=== PATIENT | female | born 1935 | race Caucasian/White ===

== ENCOUNTER 2016-12-22 18:14 | Inpatient (IN) | payer OTHER ==
[~2016-12-22] VITALS: Ht 147.3 cm; Wt 87.1 kg
--- NOTE | 2016-12-22 21:19 | DIAGNOSTIC IMAGING REPORT ---
PROCEDURE: ABDOMEN/PELVIS WITH CONTRAST CLINICAL INDICATION: ABDOMINAL PAIN TECHNIQUE: 125 ml of Isovue 300 were injected intravenously and axial images were obtained of the abdomen and pelvis with sagittal and coronal reformations. COMPARISON: 03/10/2014 FINDINGS: ABDOMEN: Bibasilar atelectasis. Diffuse circumferential wall thickening of the distal esophagus and mild mucosal hyperemia. Moderate cardiomegaly. There is a fairly long segment, at least 15 cm, of a small bowel loop which demonstrates moderate stricturing and diffuse circumferential wall thickening, moderate wall hyperemia, and surrounding inflammatory changes including adjacent free fluid. Proximal to this, multiple loops of small bowel are distended and fluid-filled. The stomach is moderately distended and fluid-filled. Surgically absent gallbladder with moderate intra and extrahepatic biliary dilatation. The adrenal glands, kidneys, pancreas and spleen are normal. The abdominal aorta is normal in its course and caliber. Mild atherosclerosis. There are no suspicious calcifications, retroperitoneal adenopathy or masses. PELVIS: Surgically absent appendix. Normal amount of stool in the colon and rectum. The uterus, urinary bladder, and pelvic vessels are normal. No adenopathy, free fluid, or pelvic mass. Diffuse degenerative disc changes. IMPRESSION: 1. Findings of high-grade partial or near complete bowel obstruction with a fairly long segment of transition zone in the left lower quadrant of moderately strictured, inflamed small bowel. Adjacent fluid but no free air. 2. Post cholecystectomy with biliary dilatation and appendectomy. 3. Distal esophagitis, acute versus chronic. 4. Moderate cardiomegaly. 5. Discussed with Dr. Hennessy in the emergency room. All CT scans at this facility use dose modulation, iterative reconstruction, and/or weight-based dosing when appropriate to reduce radiation dose to as low as reasonably achievable.
--- NOTE | 2016-12-22 21:34 | ED NURSING NOTES ---
Clinical Report - Nurses [facility] [address] [place] [address] 12/22/2016 18:15 Patient: CHRISTIE BAILEY TRIAGE Triage time 18:34 Dec 22 2016. Acuity: LEVEL 3. Chief Complaint: ABDOMINAL PAIN, NAUSEA and VOMITING. ARIANNA COMA SCORE: Arianna Coma Scale: 15- eyes open spontaneously (4); best verbal response- oriented x 4 (5); best motor response- obeys commands (6). --18:41 Jamarcus Vance R.N. 18:34 12/22/16. BP: 166/79. HR: 77. RR: 18. O2 saturation: 93%. Temp: 98.4 F. Pain level now 8/10. --18:41 Jamarcus Vance R.N. Weight: 73.9 kg stated. Height/Length: 59 inches Per Patient. BMI: 32.9. --18:38 Jamarcus Vance R.N. Medications Olopatadine HCl Ophthalmic. --18:46 Jamarcus Vance R.N. Losartan Potassium Oral (Tablet 100 mg) 1 tablet, daily. --18:46 Jamarcus Vance R.N. Hydrochlorothiazide Oral (Tablet 50 mg) 1 tablet, daily. --18:46 Jamarcus Vance R.N. Multi Vitamin Daily Oral. --18:46 Jamarcus Vance R.N. Ondansetron Oral (Film 4 mg), 3x a day as needed. --18:48 Jamarcus Vance R.N. Polyethylene Glycol 3350 Oral. --18:49 Jamarcus Vance R.N. Aspir-81 Oral. --18:49 Jamarcus Vance R.N. Probiotic Daily Oral. --18:49 Jamarcus Vance R.N. Metoprolol Tartrate Oral. --18:50 Jamarcus Vance R.N. Allergies Benecore. Definite Moderate(nausea) Codeine. Definite Moderate(hives) --18:36 Jamarcus Vance R.N. Oxycodone. --18:36 Jamarcus Vance R.N. Atenolol. --18:37 Jamarcus Vance R.N. History Arrived by private vehicle. Historian: patient. Accompanied by family. This started last night. She has had nausea, vomiting and abdominal pain. No diarrhea, constipation or fever. Last oral intake by patient was yesterday (1500). PAST MEDICAL HX: Gallstones. No history of diabetes mellitus. No history of gastroesophageal reflux disease or peptic ulcer disease. Immunizations: up-to-date. SOCIAL HX: Never smoker. No alcohol use or drug use. No recent travel. No known contact with a sick individual. SELF HARM ASSESSMENT: A self harm assessment was performed. The patient answered "no" to the question "Have you recently felt down, depressed, or hopeless?" and "Do you have thoughts of harming or killing yourself?". FALL RISK ASSESSMENT: Fall risk assessment completed. No fall risk identified. NUTRITIONAL RISK ASSESSMENT: The nutritional risk assessment revealed no deficiencies. FUNCTIONAL ASSESSMENT: Functional assessment: no impairments noted. LEARNING NEEDS ASSESSMENT: The learning needs assessment revealed no barriers. ABUSE ASSESSMENT: Abuse assessment: (yes) The patient was asked "Do you feel safe in your home?". SKIN INTEGRITY ASSESSMENT: Skin integrity risk assessment completed. No skin integrity risk identified. --18:41 Jamarcus Vance R.N. PROBLEMS: Tinnitus . Serrated adenoma of colon . Bowel Obstruction. Hernia. LNMP - Last Normal Menstrual Period. Ovarian Cyst. Hypertension. Diverticulosis. --18:54 Jamarcus Vance R.N. ADDITIONAL SURGERIES: Adenoidectomy. Appendectomy. Bunionectomy . Cholecystectomy. Colostomy. Csection . Hammer toe repair . Hand finger surgery . Inguinal Hernia Repair. Laparoscopy. Shoulder Surgery. Tonsillectomy. --18:54 Jamarcus Vance R.N. Interventions ID and allergy band on patient. --18:41 Jamarcus Vance R.N. PHYSICAL ASSESSMENT To room via wheelchair. GENERAL / NEURO / PSYCH: Alert. Oriented X 4. Appears in pain. HEENT: Mucous membranes are pink. RESPIRATORY: Respirations not labored. Breath sounds within normal limits. CVS: Normal sinus rhythm noted. Capillary refill less than 2 seconds. GI / : The patient has had nausea. Abdominal distention. Abdominal tenderness. ( small little stools past few days.). SKIN: Skin is warm and dry. --18:43 Jamarcus Vance R.N. NURSING PROGRESS NOTES The initial plan of care for this patient includes an assessment with efforts to address patient positioning and appropriate ambient lighting; impairment of the gastrointestinal system. Pulse oximeter and NIBP monitor placed on patient. Patient gowned. Head of bed elevated. Reassurance given. Call light placed in reach. Side rails up x 1. Bed placed in lowest position. Brakes of bed on. --18:44 Jamarcus Vance R.N. 19:03. Care transferred and report received. --19:06 Kody Lanier R.N. 19:18. Patient ID band checked for patient name and birthdate: patient confirmed. Blood samples drawn from the right antecubital space peripheral IV site with syringe by nurse ; labeled in presence of the patient and sent to lab: rainbow set and cabrera top. Initial blood discarded and additional blood sent to lab. Line flushed with 10 mL normal saline post blood draw. --19:22 Kody Lanier R.N. 19:21 Patient assisted to restroom, pt obtaining urine sample. --19:23 Kody Lanier R.N. 19:23. Patient ID band checked for patient name and birthdate: patient confirmed. Clean catch urine collected with return of yellow-colored clear urine; sample sent to lab for urinalysis. Specimen labeled in the presence of the patient. --19:28 Kody Lanier R.N. 18:32 12/22/2016 Site #1 started via IV in the right antecubital space with an 20g angiocath (Started at [facility] here in the ED). --19:32 Kody Lanier R.N. 19:28 12/22/2016 Started bag #1 1000 mL IV Fluids IV NS (Saline); at 1000 mL/hr over 1 hour(s) via site #1 via IV pump. Allergies verified and confirmed 5 rights. IV patency established. IV site checked: no pain, redness, or swelling. IV flushed thoroughly pre- and post-medication administration. --19:33 Kody Lanier R.N. 19:28 12/22/2016 Reglan (Metoclopramide HCl) IVP 10 mg given over 2 minute(s) via site #1. Allergies verified and confirmed 5 rights. IV patency established. IV site checked: no pain, redness, or swelling. IV flushed thoroughly pre- and post-medication administration. --19:33 Kody Lanier R.N. 19:30 12/22/2016 Dilaudid (HYDROmorphone HCl PF) IVP 0.5 mg given over 2 minute(s) via site #1. Allergies verified, confirmed 5 rights and sedative warning given to the patient and patient's family. IV patency established. IV site checked: no pain, redness, or swelling. IV flushed thoroughly pre- and post-medication administration. --19:33 Kody Lanier R.N. 20:22. Patient transported to CT by stretcher with tech. --20:22 Kody Lanier R.N. 20:36. Patient returned from CT by stretcher with tech. --20:42 Kody Lanier R.N. The patient is calm and resting quietly. SKIN: Skin is warm and dry. Skin color within normal limits. --20:46 Kody Lanier R.N. 20:45 12/22/16. BP: 133/98. HR: 66. RR: 16. O2 saturation: 96% on nasal cannula at 2 liters/minute. Pain level now: 12/27. --20:46 Kody Lanier R.N. 20:47 additional blanket provided to pt. --21:44 Kody Lanier R.N. 21:44 Dr. Lopes with pt for exam. --21:44 Kody Lanier R.N. 21:52 12/22/2016 IV Fluids IV NS Discontinued: bag #1 infused. Total amount infused: 1000 mL. IV patency established. IV site checked: no pain, redness, or swelling. IV flushed thoroughly. --21:53 Kody Lanier R.N. 22:18. Oxygen discontinued (by Dr. Lopes). --22:34 Kody Lanier R.N. 22:43. The patient is calm and resting quietly. Overall patient status- she states feels better. SKIN: Skin is warm and dry. Skin color within normal limits. --22:45 Kody Lanier R.N. Intake & Output 22:33. IV fluids: 1000 mL. Urine: 1 trip to restroom. --22:36 Kody Lanier R.N. DISPOSITION / DISCHARGE Condition at departure: stable. No learning barriers present. Admitted to Acute Care. Transported via stretcher by [employer] with O2. Patient's personal items include: upper denture and lower denture, Other belongings; items were placed in belongings bag and transported with the patient. She did not have glasses, contacts or a hearing aid. FALL RISK ASSESSMENT: Fall risk assessment completed. No fall risk identified. --22:32 Kody Lanier R.N. 21:48 12/22/16. BP: 119/87. HR: 72. RR: 17. O2 saturation: 97% on nasal cannula at 2 liters/minute. Pain level now: 12/27. --22:32 Kody Lanier R.N. Report was given via a phone call. Report included patient's care, treatment, medications, reviewed medication reconcilliation, and condition (including any recent changes or anticipated changes). All questions were answered. Report was acknowledged. (Camila JASMINEcna caregiver). --22:33 Kody Lanier R.N. Departure time: 22:45. --22:45 Kody Lanier R.N. Locked/Released at 12/22/2016 22:50 by Kody Lanier R.N.
--- NOTE | 2016-12-22 21:34 | ED ORDER SUMMARY ---
..... Patient: CHRISTIE BAILEY OrderSheet [facility] VisitID: [id number] [address] [place] [place] [address] 81y, F Registration Date/Time: 12/22/2016 ORDER SHEET Weight: 73.9 kg (stated) Allergies: Benecore, Codeine, Oxycodone, Atenolol GENERAL ORDERS: CT Abd/Pel w Cont (No) (N/A) Urgent (18:59 12/22/2016 Robinson Worley) (Ack 19:01 Rodolfo) (20:37 RFay) CBC w Diff Urgent (19:00 12/22/2016 Robinson Worley) (Ack 19:01 Rodolfo) (19:28 JQuivey R.N.) CMP Urgent (19:00 12/22/2016 Robinson Worley) (Ack 19:01 Rodolfo) (19:28 JQuivey R.N.) UA-Culture if indicated Urgent (19:00 12/22/2016 Robinson Worley) (Ack 19:01 Rodolfo) (19:28 JQuivey R.N.) PT with INR Urgent (19:00 12/22/2016 Robinson Worley) (Ack 19:01 Rodolfo) (19:28 JQuivey R.N.) Lipase Urgent (19:00 12/22/2016 Robinson Worley) (Ack 19:01 Rodolfo) (19:28 JQuivey R.N.) Lactate, Serum Urgent (19:00 12/22/2016 Robinson Worley) (Ack 19:01 Rodolfo) (19:28 JQuivey R.N.) Pulse oximeter (19:00 12/22/2016 Robinson Worley) (Ack 19:07 JQuivey R.N.) (19:28 JQuivey R.N.) MEDICATION ORDERS: IV FLUIDS: IV NS : initial bolus 1000 mL (1000 mL/hr), then none - for X1 (NOW) (18:59 12/22/2016 Robinson Worley) (Ack 19:08 JQuivey R.N.) (19:33 Yiiveliza R.N.) Dilaudid IV 0.5 mg (HIGH ALERT MEDICATION, NOW) (19:00 12/22/2016 Robinson Worley) (Ack 19:07 Yiiveliza R.N.) (19:33 Yiivey R.N.) Reglan IV 10 mg (NOW) (19:12/22/2016 Robinson Worley) (Ack 19:07 Yiiveliza R.N.) (19:33 Yiivey R.N.) ORDER SHEET NOTES: [Electronically signed by Kody Lanier R.N. (22:50 12/22/2016)] [Electronically signed by Severiano Hennessy Dr. (05:33 12/24/2016)] [Electronically locked/signed by Kody Lanier R.N. (22:50 12/22/2016)]
--- NOTE | 2016-12-22 21:34 | ED ORDER SUMMARY ---
..... Patient: CHRISTIE BAILEY OrderSheet [facility] VisitID: [id number] [address] [place] [place] [address] 81y, F Registration Date/Time: 12/22/2016 ORDER SHEET Weight: 73.9 kg (stated) Allergies: Benecore, Codeine, Oxycodone, Atenolol GENERAL ORDERS: CT Abd/Pel w Cont (No) (N/A) Urgent (18:59 12/22/2016 Robinson Worley) (Ack 19:01 Rodolfo) (20:37 RFay) CBC w Diff Urgent (19:00 12/22/2016 Robinson Worley) (Ack 19:01 Rodolfo) (19:28 JQuivey R.N.) CMP Urgent (19:00 12/22/2016 Robinson Worley) (Ack 19:01 Rodolfo) (19:28 JQuivey R.N.) UA-Culture if indicated Urgent (19:00 12/22/2016 Robinson Worley) (Ack 19:01 Rodolfo) (19:28 JQuivey R.N.) PT with INR Urgent (19:00 12/22/2016 Robinson Worley) (Ack 19:01 Rodolfo) (19:28 JQuivey R.N.) Lipase Urgent (19:00 12/22/2016 Robinson Worley) (Ack 19:01 Rodolfo) (19:28 JQuivey R.N.) Lactate, Serum Urgent (19:00 12/22/2016 Robinson Worley) (Ack 19:01 Rodolfo) (19:28 JQuivey R.N.) Pulse oximeter (19:00 12/22/2016 Robinson Worley) (Ack 19:07 JQuivey R.N.) (19:28 JQuivey R.N.) MEDICATION ORDERS: IV FLUIDS: IV NS : initial bolus 1000 mL (1000 mL/hr), then none - for X1 (NOW) (18:59 12/22/2016 Robinson Worley) (Ack 19:08 JQuivey R.N.) (19:33 Yiiveliza R.N.) Dilaudid IV 0.5 mg (HIGH ALERT MEDICATION, NOW) (19:00 12/22/2016 Robinson Worley) (Ack 19:07 Yiiveliza R.N.) (19:33 Yiivey R.N.) Reglan IV 10 mg (NOW) (19:12/22/2016 Robinson Worley) (Ack 19:07 Yiiveliza R.N.) (19:33 Yiivey R.N.) ORDER SHEET NOTES: [Electronically signed by Kody Lanier R.N. (22:50 12/22/2016)] [Electronically signed by Severiano Hennessy Dr. (05:33 12/24/2016)] [Electronically locked/signed by Kody Lanier R.N. (22:50 12/22/2016)]
--- NOTE | 2016-12-22 21:34 | ED CLINICAL REPORT ---
Clinical Report - Physicians/Mid Levels [facility] [address] [place] [address] 12/22/2016 18:15 Patient: CHRISTIE BAILEY Arrived- By ambulance. Historian- patient. HISTORY OF PRESENT ILLNESS Chief Complaint: ABDOMINAL PAIN. At its maximum, severity described as severe. When seen in the E.D., severity described as severe. Modifying factors- worsened by movement. Relieved by rest. It is described as sharp. No radiation. This started yesterday and is still present and worsening. It was abrupt in onset and has been constant and waxing/waning but is not gone now. The patient has had nausea and vomiting. No loss of appetite or diarrhea. No additional abdominal pain. (reports no flatus since abdominal pain began.). No recent travel. Similar symptoms previously: (a few times. reports hx of "bowel obstruction"). Recent medical care: Not recently seen/assessed. REVIEW OF SYSTEMS No chest pain, difficulty breathing or skin rash. All systems otherwise negative, except as recorded above. PAST HISTORY See nurses notes. Medications: Metoprolol Tartrate Oral. Probiotic Daily Oral. Aspir-81 Oral. Polyethylene Glycol 3350 Oral. Ondansetron Oral (Film 4 mg), 3x a day as needed. Multi Vitamin Daily Oral. Hydrochlorothiazide Oral (Tablet 50 mg) 1 tablet, daily. Losartan Potassium Oral (Tablet 100 mg) 1 tablet, daily. Olopatadine HCl Ophthalmic. Allergies: Atenolol. Benecore. Definite Moderate(nausea) Codeine. Definite Moderate(hives) Oxycodone. SOCIAL HISTORY Never smoker. No alcohol use or drug use. No recent travel. Is a local resident. ADDITIONAL NOTES The nursing notes have been reviewed. PHYSICAL EXAM Vital Signs: 12/22/2016 18:34 BP: 166/79. HR: 77. RR: 18. O2 saturation: 93%. Temp: 98.4 F. Hypertensive. Oxygen saturation normal. Appearance: Alert. Oriented X3. Patient in mild distress. (non-toxic, pleasant, cooperative). ENT: Ears normal. Nose normal. Pharynx normal. Neck: Normal inspection. Neck supple. CVS: Normal heart rate and rhythm. Heart sounds normal. Pulses normal. Respiratory: No respiratory distress. Breath sounds normal. Chest nontender. Abdomen: Soft. Mild tenderness in the epigastric area. Abnormal bowel sounds: absent. No organomegaly. No mass. Skin: Skin warm and dry. Normal skin color. No rash. Normal skin turgor. Extremities: Extremities exhibit normal ROM. No lower extremity edema. Neuro: No motor deficit. No sensory deficit. LABS, X-RAYS, AND EKG Abdominal CT: PROCEDURE: ABDOMEN/PELVIS WITH CONTRAST CLINICAL INDICATION: ABDOMINAL PAIN TECHNIQUE: 125 ml of Isovue 300 were injected intravenously and axial images were obtained of the abdomen and pelvis with sagittal and coronal reformations. COMPARISON: 03/10/2014 FINDINGS: ABDOMEN: Bibasilar atelectasis. Diffuse circumferential wall thickening of the distal esophagus and mild mucosal hyperemia. Moderate cardiomegaly. There is a fairly long segment, at least 15 cm, of a small bowel loop which demonstrates moderate stricturing and diffuse circumferential wall thickening, moderate wall hyperemia, and surrounding inflammatory changes including adjacent free fluid. Proximal to this, multiple loops of small bowel are distended and fluid-filled. The stomach is moderately distended and fluid-filled. Surgically absent gallbladder with moderate intra and extrahepatic biliary dilatation. The adrenal glands, kidneys, pancreas and spleen are normal. The abdominal aorta is normal in its course and caliber. Mild atherosclerosis. There are no suspicious calcifications, retroperitoneal adenopathy or masses. PELVIS: Surgically absent appendix. Normal amount of stool in the colon and rectum. The uterus, urinary bladder, and pelvic vessels are normal. No adenopathy, free fluid, or pelvic mass. Diffuse degenerative disc changes. IMPRESSION: 1. Findings of high-grade partial or near complete bowel obstruction with a fairly long segment of transition zone in the left lower quadrant of moderately strictured, inflamed small bowel. Adjacent fluid but no free air. 2. Post cholecystectomy with biliary dilatation and appendectomy. 3. Distal esophagitis, acute versus chronic. 4. Moderate cardiomegaly. Laboratory Tests: UA-Culture if indicated: (TIMMY: 12/22/2016 19:18) ( MsgRcvd 12/22/2016 20:19) Final results Test Result Flag Units (Reference) URINE COLOR YELLOW URINE APPEARANCE CLEAR URINE GLUCOSE NEGATIVE (NEGATIVE) URINE BILIRUBIN NEGATIVE (NEGATIVE) URINE KETONE 1+ (NEGATIVE) URINE SPECIFIC GRAVITY 1.025 (1.010-1.030) URINE PH 6.0 (5.0-8.0) URINE PROTEIN NEGATIVE (NEGATIVE) URINE UROBILINOGEN 1.0 EU/dL (0.2-1.0) URINE NITRITE NEGATIVE (NEGATIVE) URINE BLOOD NEGATIVE (NEGATIVE) URINE LEUK ESTERASE NEGATIVE (NEGATIVE) URINE RBC 0-1 rbc/hpf (0-1) URINE WBC 5-10 wbc/hpf (0-1) URINE EPITHELIAL CELLS 1-3 EPI/hpf (0-5) URINE BACTERIA NONE SEEN (NONE SEEN) URINE COMMENT CULT NOT INDICATED 1+ MUCUSURINE CULTURES ARE SET-UP BASED ON THE FOLLOWING CRITERIA:POSITIVE NITRITEPOSITIVE LEUKOCYTE ESTERASEGREATER THAN 10 WHITE BLOOD CELLSMODERATE (2+) OR GREATER BACTERIA CBC w Diff: (TIMMY: 12/22/2016 19:18) ( [facility] 12/22/2016 19:54) Final results Test Result Flag Units (Reference) WHITE BLOOD COUNT 15.1 H K/uL (4.5-11.5) RED BLOOD COUNT 4.72 M/uL (4.00-5.20) HEMOGLOBIN 14.0 gm/dL (12.0-16.0) HEMATOCRIT 42.4 % (36.0-46.0) MEAN CELL VOLUME 90 fL (80-100) MEAN CORPUSCULAR HGB 30 pg (26-34) MEAN CORPUSCULAR HGB CONC 33 g/dL (31-37) RED CELL DISTRIBUTION WIDTH 14.6 % (11.6-14.8) PLATELET COUNT 297 K/uL (150-400) NEUTROPHIL % 89.0 H % (50-75) LYMPH % 7.8 L % (25-40) MONO % 2.5 L % (3-14) EOSINOPHIL % 0.3 % (0-4) BASOPHIL % 0.4 % (0-2) PT with INR: (TIMMY: 12/22/2016 19:18) ( [facility] 12/22/2016 19:55) Final results Test Result Flag Units (Reference) INR 1.0 (0.8-1.2) Low Intensity Therapy: INR 1.5-2.0 PT range 18.5-23.1Mod.Intensity Therapy: INR 2.0-3.0 PT range 23.1-31.5High Intensity Therapy: INR 2.5-3.5 PT range 27.4-35.5High Intensity Therapy 2: INR 3.0-4.0 PT range 31.5-39.3 Lactate, Serum: (TIMMY: 12/22/2016 19:18) ( [facility] Final results Test Result Flag Units (Reference) LACTIC ACID 1.4 mmol/L (0.4-2.0) CMP: (TIMMY: 12/22/2016 19:18) ( [facility] 12/22/2016 20:07) Final results Test Result Flag Units (Reference) GLUCOSE 125 H mg/dL (70-110) BUN 14 mg/dL (7-18) CREATININE 0.8 mg/dL (0.6-1.3) Estimated GFR >60 mL/min Estimated GFR- >60 mL/min Note: Persistent reduction over 3 months in eGFR<60 mL/min/1.73 m2 defines CKD. Patients with eGFR values>=60 mL/min/1.73 m2 may also have CKD if evidence ofpersistent proteinuria. Additional information may be foundat www.kidney.org. SODIUM 139 mmol/L (136-145) POTASSIUM 3.5 mmol/L (3.5-5.1) CHLORIDE 101 mmol/L (98-107) CARBON DIOXIDE 29 mmol/L (21-32) CALCIUM 8.9 mg/dL (8.5-10.1) TOTAL PROTEIN 7.2 g/dL (6.4-8.2) ALBUMIN 3.5 g/dL (3.3-5.0) BILIRUBIN, TOTAL 0.6 mg/dL (0.0-1.0) ALKALINE PHOSPHATASE 106 U/L (46-116) AST (SGOT) 18 U/L (15-37) ALT (SGPT) 17 U/L (12-78) LIPASE 97 U/L (73-393) . PROGRESS AND PROCEDURES Course of Care: the patient is a pleasant 81-year-old female with past medical history significant for small bowel obstruction presenting for evaluation of abdominal pain and nausea with vomiting. At this time differential diagnosis includes urinary tract infection, small bowel obstruction, or surgical abdomen. Patient will be evaluated with CT scan and laboratory studies. Patient is agreeable to the treatment and plan. Pain medication has been provided. Patient is in place as nothing by mouth. Workup shows patient to have a small bowel obstruction. Discussed case with radiology. Patient will likely need to be admitted to the hospital for bowel rest and IV hydration. Discussed cased with hospitalist. No further recommendations. Also had discussed case with general surgery. No further recommendations made by general surgery. Patient will be monitored in the emergency department untilpatient is been placed on the floor. Do not feel patient has surgical abdomen at this time. Patient continues to be nontoxic and in no acute distress. Repeat examination of the abdomen is improved. Patient also reports that her pain has significantly improved since being here in the emergency department. Do not feel patient is a good outpatient candidate as she is 81 years old and has radiographic evidence of bowel obstruction. Patient is at high risk for complications if discharged home. Patient is agreeable to the admission to the hospital. Discussed with patient workup here in the emergency department as well as plan of care and diagnosis. All questions have been answered. Consult obtained. general surgery. Disposition: Observation in Acute Care. CLINICAL IMPRESSION acute small bowel obstruction acute leukocytosis nausea and vomiting, acute. (Electronically signed by Severiano Hennessy Dr. 12/24/2016 5:33)
[2016-12-22 22:55] VITALS: BP 136/61
[2016-12-23 03:06] VITALS: BP 134/67
[2016-12-23] MEDS ORDERED: ASPIRIN ADULT L81 MG PO (06:22)
[2016-12-23] MEDS ORDERED: HYDROCHLOROTHIA25 MG PO (06:24)
[2016-12-23] MEDS ORDERED: MULTIVITAMIN1 TAB PO (06:25)
[2016-12-23] MEDS ORDERED: COZAAR100 MG PO (06:25)
[2016-12-23] MEDS ORDERED: ZOFRAN ODT4 MG PO (06:28)
[2016-12-23] MEDS ORDERED: MIRALAX EQUIVAL17 GM PO (06:29)
[2016-12-23 06:41] VITALS: BP 132/75
--- NOTE | 2016-12-23 08:03 | History & Physical Report ---
Information Source Information Source: Self Reliability: Good History Chief Complaint abdominal pain with nausea and vomiting History of Present Illness Patient is an Patient History 1. Small bowel obstruction 2. Leukocytosis 3. Nausea and vomiting 4. Hypertension Social History Pt lives at home with her daughter. She is a retired housewife. She does not drink, smoke or use illicit substances. Medications and Allergies Medications Home Medications hctz 50 mg dialy aspirin 81 mg daily losartan 100 mg daily metoprolol tartrate 25 mg daily Current Medications Sig/Roshni Start time Last Medication Dose Route Stop Time Status Admin Aspirin 81 MG DAILY 12/23 899 AC 12/23 PO 1010 Candesartan Cilexetil 16 MG DAILY 12/23 899 AC 12/23 PO 1010 Hydrochlorothiazide 50 MG DAILY 12/23 899 AC 12/23 PO 1010 Pantoprazole Sodium 40 MG DAILY@0600 12/23 0600 AC 12/23 IV 0608 Morphine Sulfate 1 MG Q4H PRN 12/22 2245 AC IV Acetaminophen 650 MG Q6H PRN 12/22 2230 AC PO Sodium Chloride 1,000 ML ASDIRECTED 12/22 2230 AC 12/23 IV 0637 Morphine Sulfate 2 MG Q4H PRN / 2145 AC 12/23 IV 0801 Morphine Sulfate 4 MG Q4H PRN / 2145 AC IV Ondansetron HCl 4 MG Q8H PRN / 2130 AC 12/23 IV 0319 Allergies Coded Allergies: Codeine (Severe, RED HIVES 12/23/16) Atenolol (Intermediate, Nausea, Vomiting 12/23/16) Olmesartan (Intermediate, BLOATING 12/23/16) Oxycodone (Avoids because of codeine allergy 12/23/16) Review of Systems Constitutional Denies: Fever, Chills, Sweats, Weakness, Malaise, Other. Eyes Denies: Pain, Vision Change, Conjunctival Inflammation, Eyelid Inflammation, Redness, Other. ENT Denies: Ear Pain, Ear Discharge, Nose Pain, Nasal Discharge, Nasal Congestion, Mouth Pain, Mouth Swelling, Throat Pain, Throat Swelling, Other. Respiratory Denies: Cough, Dry, SOB w/exertion, Wheezing, Hemoptysis, Pleuritic Pain, Sputum , Other. Cardiovascular Denies: Chest Pain, Palpitations, Orthopnea, PND, Edema, Light-headedness, Other. Gastrointestinal Denies: Nausea, Vomiting, Abdominal Pain, Diarrhea, Constipation, Melena, Hematochezia, Other. Genitourinary Denies: Dysuria, Frequency, Incontinence, Hematuria, Retention, Other. Musculoskeletal Denies: Neck Pain, Shoulder Pain, Arm Pain, Back Pain, Hand Pain, Leg Pain, Foot Pain, Other. Skin Denies: Rash, Lesions, Jaundice, Bruising, Other. Neurological Denies: Weakness, Numbness, Incoordination, Change in speech, Confusion, Seizures, Other. Physical Exam Vital Signs / I&Os Vital Signs Date Time Temp Pulse Resp B/P Pulse O2 O2 Flow FiO2 Ox Delivery Rate 12/23 1131 98.4 63 20 126/56 95 Room Air 0.0 12/23 0641 98.2 51 20 132/75 92 Room Air 0.0 12/23 0306 99.1 72 16 134/67 93 Room Air 12/22 2330 Room Air 12/22 2255 98.4 68 16 136/61 93 I&O 12/22 0800 12/22 1600 12/23 0000 Intake Total Output Total Balance General Appearance Alert, Oriented X3, No acute distress Lungs Clear to auscultation, Normal air movement Cardiovascular Regular rate and rhythm, Normal S1 and S2, No murmurs, gallops, rubs Abdomen Normal bowel sounds, Soft, No tenderness, No guarding, No rebound Extremities No clubbing, No edema, Normal pulses, No tenderness, Strength = upper ext's, Strength = lower ext's, Grace's sign negative Skin No Rashes Neurological Normal speech, Normal tone, Sensation intact, Reflexes 2+ and equal , Cranial nerves intact, Strength 5/5 x4 ext's, No lateralizing signs Psych/Mental Status Mental status normal, Mood normal, Confused LAB Results Laboratory Tests 12/22 12/22 12/23 1918 1918 0510 Chemistry Plasma Sodium (136 - 145 mmol/L) 139 143 Plasma Potassium (3.5 - 5.1 mmol/L) 3.5 3.6 Plasma Chloride (98 - 107 mmol/L) 101 107 CO2 (Enzymatic) (21 - 32 mmol/L) 29 28 BUN (7 - 18 mg/dL) 14 12 Creatinine (0.6 - 1.3 mg/dL) 0.8 0.7 Est GFR ( Amer) (mL/min) >60 >60 Est GFR (Non-Af Amer) (mL/min) >60 >60 Glucose (70 - 110 mg/dL) 125 106 Lactic Acid (0.4 - 2.0 mmol/L) 1.4 Plasma Calcium (8.5 - 10.1 mg/dL) 8.9 8.0 Total Bilirubin (0.0 - 1.0 mg/dL) 0.6 0.5 AST (15 - 37 U/L) 18 13 ALT (12 - 78 U/L) 17 15 Alkaline Phosphatase (46 - 116 U/L) 106 84 Total Protein (6.4 - 8.2 g/dL) 7.2 5.5 Albumin (3.3 - 5.0 g/dL) 3.5 2.9 Lipase (73 - 393 U/L) 97 Coagulation INR (0.8 - 1.2) 1.0 Hematology WBC (4.5 - 11.5 K/uL) 15.1 12.5 RBC (4.00 - 5.20 M/uL) 4.72 3.96 Hgb (12.0 - 16.0 gm/dL) 14.0 11.7 Hct (36.0 - 46.0 %) 42.4 35.4 MCV (80 - 100 fL) 90 90 MCH (26 - 34 pg) 30 30 RDW (11.6 - 14.8 %) 14.6 14.6 Neut % (Auto) (50 - 75 %) 89.0 81.1 Lymph % (Auto) (25 - 40 %) 7.8 11.9 [place] % (Auto) (3 - 14 %) 2.5 6.1 Eos % (Auto) (0 - 4 %) 0.3 0.6 Baso % (Auto) (0 - 2 %) 0.4 0.3 Plt Count, EDTA (150 - 400 K/uL) 297 271 PUBS MCHC (31 - 37 g/dL) 33 33 Urines Urine Color YELLOW Urine Appearance CLEAR Urine pH (5.0 - 8.0) 6.0 Ur Specific [place] (1.010 - 1.030) 1.025 Urine Protein (NEGATIVE) NEGATIVE Urine Ketones (NEGATIVE) 1+ Urine Blood (NEGATIVE) NEGATIVE Urine Nitrite (NEGATIVE) NEGATIVE Urine Bilirubin (NEGATIVE) NEGATIVE Urine Urobilinogen (0.2 - 1.0 EU/dL) 1.0 Ur Leukocyte Esterase (NEGATIVE) NEGATIVE Urine RBC (0 - 1 rbc/hpf) 0-1 Urine WBC (0 - 1 wbc/hpf) 5-10 Ur Epithelial Cells (0 - 5 EPI/hpf) 1-3 Urine Bacteria (NONE SEEN) NONE SEEN Urine Glucose (NEGATIVE) NEGATIVE Urine Comment CULT NOT INDICATED Assessment and Plan Problem List 1. Small bowel obstruction Plan - presence of small bowel obstruction on CT scan of abdomen - graded as a high grade obstruction - will keep npo - no vomitng on exam - will keep npo - will keep on ivf while npo - surgical consult in the am 2. Nausea and vomiting Plan - stable no evidence of nausea and vomting in hospital course - will keep on zofran for anti-emetic properties 3. Hypertension Plan - will resume home medication - will replace losartan 100 mg with candesartan 16 mg daily - will continue to trend bp
[2016-12-23 11:31] VITALS: BP 126/56
--- NOTE | 2016-12-23 13:00 | Progress Note ---
Subjective General Patient seen and examined, upon the time of exam patient had 3 bowel movements. Patient has return of bowel function and will be subsequently discharged. Constitutional Denies: Fever, Chills, Sweats, Weakness, Malaise, Other. Eyes Denies: Pain, Vision Change, Conjunctival Inflammation, Eyelid Inflammation, Redness, Other. Respiratory Denies: Cough, Dry, SOB w/exertion, Wheezing, Hemoptysis, Pleuritic Pain, Sputum , Other. Cardiovascular Denies: Chest Pain, Palpitations, Orthopnea, PND, Edema, Light-headedness, Other. Gastrointestinal Denies: Nausea, Vomiting, Abdominal Pain, Diarrhea, Constipation, Melena, Hematochezia, Other. Genitourinary Denies: Dysuria, Frequency, Incontinence, Hematuria, Retention, Other. Musculoskeletal Denies: Neck Pain, Shoulder Pain, Arm Pain, Back Pain, Hand Pain, Leg Pain, Foot Pain, Other. Skin Denies: Rash, Lesions, Jaundice, Bruising, Other. Neurological Denies: Weakness, Numbness, Incoordination, Change in speech, Confusion, Seizures, Other. Physical Exam Vital Signs / I&Os Vital Signs Date Time Temp Pulse Resp B/P Pulse O2 O2 Flow FiO2 Ox Delivery Rate 12/23 1131 98.4 63 20 126/56 95 Room Air 0.0 / 0641 98.2 51 20 132/75 92 Room Air 0.0 / 0306 99.1 72 16 134/67 93 Room Air 03/ 2330 Room Air 03/ 2255 98.4 68 16 136/61 93 I&O / 0800 03/05 1600 /06 0000 Intake Total Output Total Balance General Appearance Alert, Oriented X3, No acute distress HEENT Atraumatic, PERRLA, EOMI, Moist mucous membranes Lungs Normal exam, Clear to auscultation, Normal air movement Neck Supple, No JVD, No masses, No thyromegaly, No lymphadenopathy, 2+ carotid pulse wo bruit Cardiovascular Regular rate and rhythm, Normal S1 and S2, No murmurs, gallops, rubs Abdomen Normal bowel sounds, Soft, No tenderness, No guarding, No rebound Extremities No clubbing, No edema, Normal pulses, No tenderness, Strength = upper ext's, Strength = lower ext's Skin No Rashes Neurological Normal gait, Normal speech, Normal tone, Sensation intact, Reflexes 2+ and equal, Cranial nerves intact, Strength 5/5 x4 ext's, No lateralizing signs LAB Results Laboratory Tests 12/22 12/22 12/23 1918 1918 0510 Chemistry Plasma Sodium (136 - 145 mmol/L) 139 143 Plasma Potassium (3.5 - 5.1 mmol/L) 3.5 3.6 Plasma Chloride (98 - 107 mmol/L) 101 107 CO2 (Enzymatic) (21 - 32 mmol/L) 29 28 BUN (7 - 18 mg/dL) 14 12 Creatinine (0.6 - 1.3 mg/dL) 0.8 0.7 Est GFR ( Amer) (mL/min) >60 >60 Est GFR (Non-Af Amer) (mL/min) >60 >60 Glucose (70 - 110 mg/dL) 125 106 Lactic Acid (0.4 - 2.0 mmol/L) 1.4 Plasma Calcium (8.5 - 10.1 mg/dL) 8.9 8.0 Total Bilirubin (0.0 - 1.0 mg/dL) 0.6 0.5 AST (15 - 37 U/L) 18 13 ALT (12 - 78 U/L) 17 15 Alkaline Phosphatase (46 - 116 U/L) 106 84 Total Protein (6.4 - 8.2 g/dL) 7.2 5.5 Albumin (3.3 - 5.0 g/dL) 3.5 2.9 Lipase (73 - 393 U/L) 97 Coagulation INR (0.8 - 1.2) 1.0 Hematology WBC (4.5 - 11.5 K/uL) 15.1 12.5 RBC (4.00 - 5.20 M/uL) 4.72 3.96 Hgb (12.0 - 16.0 gm/dL) 14.0 11.7 Hct (36.0 - 46.0 %) 42.4 35.4 MCV (80 - 100 fL) 90 90 MCH (26 - 34 pg) 30 30 RDW (11.6 - 14.8 %) 14.6 14.6 Neut % (Auto) (50 - 75 %) 89.0 81.1 Lymph % (Auto) (25 - 40 %) 7.8 11.9 [place] % (Auto) (3 - 14 %) 2.5 6.1 Eos % (Auto) (0 - 4 %) 0.3 0.6 Baso % (Auto) (0 - 2 %) 0.4 0.3 Plt Count, EDTA (150 - 400 K/uL) 297 271 PUBS MCHC (31 - 37 g/dL) 33 33 Urines Urine Color YELLOW Urine Appearance CLEAR Urine pH (5.0 - 8.0) 6.0 Ur Specific [place] (1.010 - 1.030) 1.025 Urine Protein (NEGATIVE) NEGATIVE Urine Ketones (NEGATIVE) 1+ Urine Blood (NEGATIVE) NEGATIVE Urine Nitrite (NEGATIVE) NEGATIVE Urine Bilirubin (NEGATIVE) NEGATIVE Urine Urobilinogen (0.2 - 1.0 EU/dL) 1.0 Ur Leukocyte Esterase (NEGATIVE) NEGATIVE Urine RBC (0 - 1 rbc/hpf) 0-1 Urine WBC (0 - 1 wbc/hpf) 5-10 Ur Epithelial Cells (0 - 5 EPI/hpf) 1-3 Urine Bacteria (NONE SEEN) NONE SEEN Urine Glucose (NEGATIVE) NEGATIVE Urine Comment CULT NOT INDICATED Assessment and Plan Problem List 1. Nausea and vomiting Plan - no episodes noted since yesterday 2. Small bowel obstruction Plan - resolved having bowel movements and normal bowel sounds - tolerating diet - will discharge today 3. Hypertension Plan - will resume all home medication on discharge
--- NOTE | 2016-12-23 13:05 | Provider's Discharge Care Plan ---
Problem, Goal, Plan Problem List 1. Small bowel obstruction Instructions: - resolved - in the future take small portions of food at a time 2. Nausea and vomiting Instructions: - take meds as needed 3. Hypertension Instructions: - take medications as prescribed
--- NOTE | 2016-12-23 13:06 | Discharge Summary ---
Discharge Summary Report Admit Date 12/22/16 Discharge Date 12/23/16 Admission Diagnosis high grade small yonas obstruction Discharge Diagnosis high grade small bowel obstruction Brief History Pt is an 81 year old female with a pmh of small bowel obstruction, and hypertension, that is presenting with a one day history of abdominal distention and vomiting. As per patient she had been in her usual state of health when she went out for [employer] with her daughter. Patient claims that she ate more than usually consumes and instantaneously started to feel bloated and unwell. Patient noticed that her bowel sounds were more pronounced and would present with occasional pangs of pain. Patient additonally noted that her abdomen was becoming increasingly distended by the hour. Patient finally had 4 bouts of emesis overnight. Despite this the patient had minimal relief. It was at this point that she recognized that this could be a repeat small bowel obstruction and decided to come to the ER. Patient has no other symptoms except for the vomiting, abdominal distention, and abdominal pain. Patient is otherwise stable. Hospital Course Pt was admitted treated with npo status and IV fluids. Patient during the morning had 3 bowel movements and return of bowel function. Patient attempted a clear liquid diet without any difficulty patient will be discharged today. General Appearance Alert, Oriented X3, No acute distress HEENT PERRLA, EOMI, Mucous membran moist/pink Lungs Clear to auscultation, Normal air movement Cardiovascular Regular Rate, Normal S1, Normal S2, No murmurs Abdomen Soft, No tenderness, No hepatospenomegaly, No masses Neurological Strength at 5/5 X4 ext, Normal tone, Sensation intact, Cranial nerves 3-12 NL, Reflexes 2+ Discharge Instructions/Meds - take medications as prescribed - follow up with your pmd - when eating meals take small portions at a time, and allow time for food to digest
--- NOTE | 2016-12-24 05:34 | ED MAR SUMMARY ---
..... Medication Administration Record [facility] [address] [place] [address] Patient: CHRISTIE BAILEY Visit ID: [id number] 81y, F Weight: 73.9 kg Height/Length: 59 in BMI: 32.9 ALLERGIES: Atenolol, Oxycodone, Benecore, Codeine Start 19:28 12/22/2016 Kody Lanier RReglaN., Stop 21:52 12/22/2016 Kody Lanier R.N. Medication Administered: IV NS (SALINE), Dose: IV Fluids over 1 hour(s), Rate: 1000 mL/hr, Dispensed: 1000 mL bag, Site: #1 right AC. Medication Ordered: IV NS : initial bolus 1000 mL (1000 mL/hr), then none - for X1 (NOW). Given 19:28 12/22/2016 Kody Lanier R.NRegla Medication Administered: REGLAN [IVP] (METOCLOPRAMIDE HCL), Dose: 10 mg IVP over 2 minute(s), Site: #1 right AC. Medication Ordered: Reglan IV 10 mg (NOW). Given 19:30 12/22/2016 Kody Lanier RReglaN. Medication Administered: DILAUDID [IVP] (HYDROMORPHONE HCL PF), Dose: 0.5 mg IVP over 2 minute(s), Site: #1 right AC. Medication Ordered: Dilaudid IV 0.5 mg (HIGH ALERT MEDICATION, NOW).
--- NOTE | 2016-12-24 05:34 | ED MED RECONCILIATION SUMMARY ---
Patient: CHRISTIE BAILEY Medication Reconciliation Report [facility] VisitID: [id number] [address] [place] [address] 81y, F Registration Date/Time: 12/22/2016 Weight: 73.9 kg Height/Length: 59 in. BMI: 32.9 ALLERGIES: Atenolol, Benecore, Codeine, Oxycodone The patient's Home Medications are listed below: THE FOLLOWING MEDICATIONS NEED TO BE RECONCILED: Aspir-81 Oral Hydrochlorothiazide Oral (50 mg) 1 tablet, daily Losartan Potassium Oral (100 mg) 1 tablet, daily Metoprolol Tartrate Oral Multi Vitamin Daily Oral Olopatadine HCl Ophthalmic Ondansetron Oral (4 mg), 3x a day Polyethylene Glycol 3350 Oral Probiotic Daily Oral The source(s) of the original Home Medication information: Not obtained. The following Medications were given to the patient in the Emergency Department: IV NS IV Fluids bolus 0, then 1000 mL/hr, administered: 12/22/2016 7:28:00 PM Reglan [IVP] IVP 10 mg, administered: 12/22/2016 7:28:00 PM Dilaudid [IVP] IVP 0.5 mg, administered: 12/22/2016 7:30:00 PM The following Medications were prescribed to the patient: None.
--- NOTE | 2016-12-24 05:34 | ED DISCHARGE INSTRUCTIONS ---
Patient: CHRISTIE BAILEY General Instructions [facility] VisitID: [id number] [address] [place] [address] 81y, F Registration Date/Time: 12/22/2016 acute small bowel obstruction acute leukocytosis nausea and vomiting, acute. (Electronically signed by Severiano Hennessy Dr. 12/24/2016 5:33)
--- NOTE | 2016-12-24 05:34 | ED MED RECONCILIATION SUMMARY ---
Patient: CHRISTIE BAILEY Medication Reconciliation Report [facility] VisitID: [id number] [address] [place] [address] 81y, F Registration Date/Time: 12/22/2016 Weight: 73.9 kg Height/Length: 59 in. BMI: 32.9 ALLERGIES: Atenolol, Benecore, Codeine, Oxycodone The patient's Home Medications are listed below: THE FOLLOWING MEDICATIONS NEED TO BE RECONCILED: Aspir-81 Oral Hydrochlorothiazide Oral (50 mg) 1 tablet, daily Losartan Potassium Oral (100 mg) 1 tablet, daily Metoprolol Tartrate Oral Multi Vitamin Daily Oral Olopatadine HCl Ophthalmic Ondansetron Oral (4 mg), 3x a day Polyethylene Glycol 3350 Oral Probiotic Daily Oral The source(s) of the original Home Medication information: Not obtained. The following Medications were given to the patient in the Emergency Department: IV NS IV Fluids bolus 0, then 1000 mL/hr, administered: 12/22/2016 7:28:00 PM Reglan [IVP] IVP 10 mg, administered: 12/22/2016 7:28:00 PM Dilaudid [IVP] IVP 0.5 mg, administered: 12/22/2016 7:30:00 PM The following Medications were prescribed to the patient: None.
--- NOTE | 2016-12-24 05:34 | ED MAR SUMMARY ---
..... Medication Administration Record [facility] [address] [place] [address] Patient: CHRISTIE BAILEY Visit ID: [id number] 81y, F Weight: 73.9 kg Height/Length: 59 in BMI: 32.9 ALLERGIES: Atenolol, Oxycodone, Benecore, Codeine Start 19:28 12/22/2016 Kody Lanier RReglaN., Stop 21:52 12/22/2016 Kody Lanier R.N. Medication Administered: IV NS (SALINE), Dose: IV Fluids over 1 hour(s), Rate: 1000 mL/hr, Dispensed: 1000 mL bag, Site: #1 right AC. Medication Ordered: IV NS : initial bolus 1000 mL (1000 mL/hr), then none - for X1 (NOW). Given 19:28 12/22/2016 Kody Lanier R.NRegla Medication Administered: REGLAN [IVP] (METOCLOPRAMIDE HCL), Dose: 10 mg IVP over 2 minute(s), Site: #1 right AC. Medication Ordered: Reglan IV 10 mg (NOW). Given 19:30 12/22/2016 Kody Lanier RReglaN. Medication Administered: DILAUDID [IVP] (HYDROMORPHONE HCL PF), Dose: 0.5 mg IVP over 2 minute(s), Site: #1 right AC. Medication Ordered: Dilaudid IV 0.5 mg (HIGH ALERT MEDICATION, NOW).
--- NOTE | 2016-12-24 05:34 | ED DISCHARGE INSTRUCTIONS ---
Patient: CHRISTIE BAILEY General Instructions [facility] VisitID: [id number] [address] [place] [address] 81y, F Registration Date/Time: 12/22/2016 acute small bowel obstruction acute leukocytosis nausea and vomiting, acute. (Electronically signed by Severiano Hennessy Dr. 12/24/2016 5:33)
== END 2016-12-23 14:30 | disposition home or self-care (01) | DRG 390 ==
LOC: ED SRH 18:14 → TRANS SRH 21:24 → ACUTE2 SRH 22:32
PROVIDERS: ADMIT Internal Medicine
DX: K56.60 Unspecified intestinal obstruction (principal); I10 Essential (primary) hypertension
CPT/HCPCS: 85241; 90004; 90074; 90100; 92031; 92235; 94060; 95059